=== PATIENT | male | born 1990 | race African-American/Black ===

== ENCOUNTER 2020-09-27 20:40 | Emergency (ER) | payer SELFPAY ==
[2020-09-27] MEDS ORDERED: ACETAMINOPHEN 500 MG TAB ONE (22:03)
[2020-09-28 00:01] LABS: Hematocrit 38.8 % (39.6-49.0); RBC Red Blood Cell Count 4.48 M/uL (4.33-5.43)
[2020-09-28 00:02] LABS: Absolute Lymphocytes (CBC) 3.7 K/uL (0.7-4.9); Basophils % 0.7 % (0-1.3); Lymphocytes % 69.7 % (15.3-44.8); MPV 8.3 fL (7.6-11.3)
[2020-09-28] MEDS ORDERED: ONDANSETRON 4 MG/2 ML VIAL ONE (00:21)
[2020-09-28 00:41] LABS: Protime INR 1.09
[2020-09-28 00:49] LABS: Urine Blood Negative (Negative); Urine Glucose Negative (Negative); Urine Protein Trace (Negative); Urine Specific Gravity 1.025 (1.005-1.030)
[2020-09-28 01:11] LABS: Barbiturates NEGATIVE (NEGATIVE); Benzodiazepines NEGATIVE (NEGATIVE); Cocaine NEGATIVE (NEGATIVE); METHAMPHETAM NEGATIVE (NEGATIVE); Methadone NEGATIVE (NEGATIVE); Opiates NEGATIVE (NEGATIVE); Phencyclidine NEGATIVE (NEGATIVE); THC Cannibis NEGATIVE (NEGATIVE)
[2020-09-28 01:37] LABS: ALT/SGPT 74 U/L (12-78); Albumin 3.9 g/dL (3.4-5.0); Alkaline Phosphatase 68 U/L (45-117); BUN Blood Urea Nitrogen 11 mg/dL (7-18); Bicarbonate 26 mmol/L (21-32); Bilirubin Total 0.9 mg/dL (0.2-1.0); Glucose Level 136 mg/dL (74-106); Lipase 243 U/L (73-393); Protein, Total 8.4 g/dL (6.4-8.2); Sodium Level 139 mmol/L (136-145)
[2020-09-28 01:43] LABS: AST/SGOT 50 U/L (15-37); Potassium 3.9 mmol/L (3.5-5.1)
--- NOTE | 2020-09-28 01:43 | ER ---
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 He called EMS reporting jb4 a headache with a nosebleed, became dizzy, and nauseous. His initial blood pressure was 150/100, it was 127/80 upon arrival to the ED. His temp was 98.3, and his bgl was 125. He also reported blurry vision. Coronavirus screen: Client denies travel out of the [place] in the last 14 days. At this time, the client does not indicate any symptoms associated with coronavirus-19. Ebola Screen: No symptoms or risks identified at this time. Initial Sepsis Screen: Does the patient meet any 2 criteria? No. Patient's initial sepsis screen is negative. Does the patient have a suspected source of infection? No. Patient's initial sepsis screen is negative. Risk Assessment: Do you want to hurt yourself or someone else? Patient reports no desire to harm self or others. Onset of symptoms was September 27, 2020. Transition of care: patient was not received from another setting of care. 21:03 Method Of Arrival: EMS: [facility] jb4 21:03 Acuity: YEE 3 jb4 Triage Assessment: 09/28 02:13 Pain: Also complains of. jb4 Historical: - Allergies: 09/27 21:09 No Known Allergies; jb4 - Home Meds: 21:09 Genvoya oral oral [Active]; jb4 - PMHx: 21:09 low Vit. D; HIV; jb4 - PSHx: 21:09 None; jb4 - Immunization history:: Adult Immunizations up to date, Flu vaccine is up to date. - Social history:: Smoking status: Patient denies any tobacco usage or history of. Patient/guardian denies using alcohol, street drugs. - Family history:: not pertinent. Screenin:50 Abuse screen: Denies threats or abuse. Nutritional screening: No deficits noted. jb4 Tuberculosis screening: No symptoms or risk factors identified. 23:50 Fall Risk None identified. jb4 Assessment: 23:00 General: Appears in no apparent distress. comfortable, Behavior is calm, cooperative, jb4 appropriate for age. Pain: Complains of pain in headache Pain does not radiate. Pain currently is 0 out of 10 on a pain scale. Neuro: Level of Consciousness is awake, alert, obeys commands, Oriented to person, place, time, situation. Cardiovascular: Patient's skin is warm and dry. Respiratory: Airway is patent Respiratory effort is even, unlabored, Respiratory pattern is regular, symmetrical. GI: No signs and/or symptoms were reported involving the gastrointestinal system. : No signs and/or symptoms were reported regarding the genitourinary system. EENT: No signs and/or symptoms were reported regarding the EENT system. Derm: Skin is intact, Skin is pink, warm \T\ dry. Musculoskeletal: Circulation, motion, and sensation intact. Range of motion: intact in all extremities. 09/28 00:00 Reassessment: Patient appears in no apparent distress at this time. Patient and/or jb4 family updated on plan of care and expected duration. Pain level reassessed. Patient is alert, oriented x 3, equal unlabored respirations, skin warm/dry/pink. 01:00 Reassessment: Patient appears in no apparent distress at this time. Patient and/or jb4 family updated on plan of care and expected duration. Pain level reassessed. Patient is alert, oriented x 3, equal unlabored respirations, skin warm/dry/pink. Vital Signs: 09/27 21:03 BP 130 / 84; Pulse 76; Resp 16; Temp 98.8; Pulse Ox 94% ; Weight 107.05 kg (R); Height jb4 6 ft. 3 in. (190.50 cm) (R); Pain 9/10; 09/28 00:00 BP 119 / 72; Pulse 67; Resp 16; Pulse Ox 98% on R/A; jb4 01:15 BP 107 / 65; Pulse 73; Resp 18; Pulse Ox 96% on R/A; jb4 01:45 BP 108 / 64; Pulse 72; Resp 16; Pulse Ox 94% on R/A; jb4 09/27 21:03 Body Mass Index 29.50 (107.05 kg, 190.50 cm) jb4 Darwin Coma Score: 09/27 23:44 Eye Response: spontaneous(4). Verbal Response: oriented(5). Motor Response: obeys [facility] commands(6). Total: 15. ED Course: 20:47 Patient arrived in ED. cf2 21:08 Triage completed. jb4 21:09 Arm band placed on right wrist. jb4 23:20 Danny Duque MD is Attending Physician. [facility] 23:48 Initial lab(s) drawn, by ky, sent to lab. Inserted saline lock: 20 gauge in right jp3 antecubital area, using aseptic technique. Blood collected. Patient maintains SpO2 saturation greater than 95% on room air. 23:49 Bed in low position. Call light in reach. Side rails up X 1. Warm blanket given. Verbal jp3 reassurance given. Pulse ox on. NIBP on. 23:50 No provider procedures requiring assistance completed. IV discontinued, intact, jb4 bleeding controlled, No redness/swelling at site. Pressure dressing applied. 23:58 Kike Whittaker, RN is Primary Nurse. jb4 09/28 00:06 Chest Single View XRAY In Process Unspecified. EDMS 00:59 CT Head Brain wo Cont In Process Unspecified. EDMS 01:43 Chad Diaz MD is Referral Physician. [facility] Administered Medications: 09/27 21:50 Drug: Tylenol 1000 mg Route: PO; jb4 23:00 Follow up: Response: No adverse reaction; Marked relief of symptoms; Pain is decreased jb4 09/28 00:14 Not Given (Patient Refused): Zofran (Ondansetron) 4 mg IVP once; over 2 minutes jb Outcome: 01:43 Discharge ordered by . [facility] 02:13 Discharged to home ambulatory. jb4 02:13 Condition: stable 02:13 Discharge instructions given to patient, Instructed on discharge instructions, follow up and referral plans. medication usage, Demonstrated understanding of instructions, follow-up care, medications, Prescriptions given X 2. 02:14 Patient left the ED. jb4 Signatures: Dispatcher [employer] EDDanny Pulliam MD MD cha Bryson, James, RN RN jb4 Ryan Morris jp3 Tiffanie Martínez cf2
--- NOTE | 2020-09-28 01:44 | EDPHYS ---
Physician Documentation [facility] Name: Abdulaziz Stokes Age: 30 yrs Sex: Male : 1990 Arrival Date: 09/27/2020 Time: 20:47 Bed 13 Private MD: ED Physician Danny Duque HPI: 09/27 23:39 This 30 yrs old Black Male presents to ER via EMS with complaints of Headache, Nausea, erlinda Dizziness. 23:39 The patient complains of pain to the top of head, forehead, left frontal area, left erlinda side of the back of head, left occipital area, left base of the skull, right frontal area, right side of the back of head, right occipital area and right base of the skull. The patient describes the headache as aching, constant. Onset: The symptoms/episode began/occurred 2 day(s) ago. Associated signs and symptoms: The patient has no apparent associated signs or symptoms. Severity of symptoms: At its worst the pain was mild, in the emergency department the pain is unchanged. Headache History: Denies prior headaches. The symptoms are alleviated by nothing. the symptoms are aggravated by nothing. The patient has experienced similar episodes in the past, a few times. Historical: - Allergies: 21:09 No Known Allergies; jb4 - Home Meds: 21:09 Genvoya oral oral [Active]; jb4 - PMHx: 21:09 low Vit. D; HIV; jb4 - PSHx: 21:09 None; jb4 - Immunization history:: Adult Immunizations up to date, Flu vaccine is up to date. - Social history:: Smoking status: Patient denies any tobacco usage or history of. Patient/guardian denies using alcohol, street drugs. - Family history:: not pertinent. ROS: 23:39 Constitutional: Negative for fever, chills, and weight loss, Eyes: Negative for injury, erlinda pain, redness, and discharge, ENT: Negative for injury, pain, and discharge, Neck: Negative for injury, pain, and swelling, Cardiovascular: Negative for chest pain, palpitations, and edema, Respiratory: Negative for shortness of breath, cough, wheezing, and pleuritic chest pain, Abdomen/GI: Negative for abdominal pain, nausea, vomiting, diarrhea, and constipation, Back: Negative for injury and pain, : Negative for injury, bleeding, discharge, and swelling, MS/Extremity: Negative for injury and deformity, Skin: Negative for injury, rash, and discoloration, Psych: Negative for depression, anxiety, suicide ideation, homicidal ideation, and hallucinations, Allergy/Immunology: Negative for hives, rash, and allergies, Endocrine: Negative for neck swelling, polydipsia, polyuria, polyphagia, and marked weight changes, Hematologic/Lymphatic: Negative for swollen nodes, abnormal bleeding, and unusual bruising. 23:39 Neuro: Positive for headache. Exam: 23:39 Constitutional: This is a well developed, well nourished patient who is awake, alert, erlinda and in no acute distress. Head/Face: Normocephalic, atraumatic. Eyes: Pupils equal round and reactive to light, extra-ocular motions intact. Lids and lashes normal. Conjunctiva and sclera are non-icteric and not injected. Cornea within normal limits. Periorbital areas with no swelling, redness, or edema. ENT: Nares patent. No nasal discharge, no septal abnormalities noted. Tympanic membranes are normal and external auditory canals are clear. Oropharynx with no redness, swelling, or masses, exudates, or evidence of obstruction, uvula midline. Mucous membranes moist. Neck: Trachea midline, no thyromegaly or masses palpated, and no cervical lymphadenopathy. Supple, full range of motion without nuchal rigidity, or vertebral point tenderness. No Meningismus. Chest/axilla: Normal chest wall appearance and motion. Nontender with no deformity. No lesions are appreciated. Cardiovascular: Regular rate and rhythm with a normal S1 and S2. No gallops, murmurs, or rubs. Normal PMI, no JVD. No pulse deficits. Respiratory: Lungs have equal breath sounds bilaterally, clear to auscultation and percussion. No rales, rhonchi or wheezes noted. No increased work of breathing, no retractions or nasal flaring. Abdomen/GI: Soft, non-tender, with normal bowel sounds. No distension or tympany. No guarding or rebound. No evidence of tenderness throughout. Back: No spinal tenderness. No costovertebral tenderness. Full range of motion. Male : Normal genitalia with no discharge or lesions. Skin: Warm, dry with normal turgor. Normal color with no rashes, no lesions, and no evidence of cellulitis. MS/ Extremity: Pulses equal, no cyanosis. Neurovascular intact. Full, normal range of motion. Neuro: Awake and alert, GCS 15, oriented to person, place, time, and situation. Cranial nerves II-XII grossly intact. Motor strength 5/5 in all extremities. Sensory grossly intact. Cerebellar exam normal. Normal gait. Psych: Awake, alert, with orientation to person, place and time. Behavior, mood, and affect are within normal limits. 23:39 Neck: ROM/movement: is normal, no acute changes, Meningeal signs: are not present, Kernig's sign is negative, Brudzinski's sign is negative. 09/28 00:05 ECG was reviewed by the Attending Physician. [facility] Vital Signs: 09/27 21:03 BP 130 / 84; Pulse 76; Resp 16; Temp 98.8; Pulse Ox 94% ; Weight 107.05 kg (R); Height jb4 6 ft. 3 in. (190.50 cm) (R); Pain 9/10; 09/28 00:00 BP 119 / 72; Pulse 67; Resp 16; Pulse Ox 98% on R/A; jb4 01:15 BP 107 / 65; Pulse 73; Resp 18; Pulse Ox 96% on R/A; jb4 01:45 BP 108 / 64; Pulse 72; Resp 16; Pulse Ox 94% on R/A; jb4 09/27 21:03 Body Mass Index 29.50 (107.05 kg, 190.50 cm) jb4 Darwin Coma Score: 09/27 23:44 Eye Response: spontaneous(4). Verbal Response: oriented(5). Motor Response: obeys [facility] commands(6). Total: 15. MDM: 23:20 Patient medically screened. erlinda 23:44 Differential diagnosis: hyponatremia, migraine, neoplasm, tension headache, vasomotor erlinda headache. Data reviewed: vital signs, nurses notes, lab test result(s), EKG, radiologic studies, CT scan. Data interpreted: monitor worker: rate is 76 beats/min, rhythm is regular, Pulse oximetry: on room air is 94 %. Test interpretation: by ED physician or midlevel provider: ECG, plain radiologic studies. Counseling: I had a detailed discussion with the patient and/or guardian regarding: the historical points, exam findings, and any diagnostic results supporting the discharge/admit diagnosis, lab results, radiology results, the need for outpatient follow up. 09/27 23:38 Order name: CBC with Diff [facility] 09/27 23:38 Order name: Comprehensive Metabolic Panel; Complete Time: 01:44 [facility] 09/27 23:38 Order name: UDS; Complete Time: 01:28 [facility] 09/27 23:38 Order name: Lipase; Complete Time: 01:44 [facility] 09/27 23:39 Order name: PT-INR; Complete Time: 00:59 [facility] 09/28 00:15 Order name: Manual Differential [facility] 09/27 23:38 Order name: Urine Dipstick-Ancillary (obtain specimen); Complete Time: 00:51 [facility] 09/27 23:38 Order name: EKG; Complete Time: 23:39 [facility] 09/27 23:38 Order name: CT Head Brain wo Cont [facility] 09/27 23:46 Order name: Chest Single View XRAY [facility] 09/28 00:49 Order name: Urine Dipstick-Ancillary; Complete Time: 00:59 [facility] 09/28 02:02 Order name: Slides for Pathologist Review [facility] 09/27 23:38 Order name: EKG - Nurse/Tech; Complete Time: 00:08 [facility] EC/20 00:05 Rate is 69 beats/min. Rhythm is regular. QRS [place] is Normal. DE interval is normal. QRS erlinda interval is normal. QT interval is normal. No Q waves. T waves are Normal. No ST changes noted. Clinical impression: Normal ECG and No evidence of ischemia. Interpreted by me. Reviewed by me. Administered Medications: 09/27 21:50 Drug: Tylenol 1000 mg Route: PO; [facility] 23:00 Follow up: Response: No adverse reaction; Marked relief of symptoms; Pain is decreased [facility] 09/28 00:14 Not Given (Patient Refused): Zofran (Ondansetron) 4 mg IVP once; over 2 minutes jb4 Disposition: 09/28/20 01:43 Discharged to Home. Impression: Epistaxis, Essential (primary) hypertension, Nausea. - Condition is Stable. - Discharge Instructions: Nosebleed, Adult, Hypertension, Nausea, Adult, Hypertension, [id number], How to Take Your Blood Pressure, [id number], Nosebleed, Xhur-vv-Ornj, Nausea, Adult, Tcfk-[id number]-Fzkz, Managing Your Hypertension. - Prescriptions for Norvasc 5 mg Oral Tablet - take 1 tablet by ORAL route once daily; 20 tablet. Zofran 4 mg Oral Tablet - take 1 tablet by ORAL route every 12 hours As needed; 20 tablet. - Medication Reconciliation Form, Thank You Letter, Antibiotic Education, Prescription Opioid Use, Work release form form. - Follow up: Private Physician; When: 2 - 3 days; Reason: Recheck today's complaints, Continuance of care, Re-evaluation by your physician. Follow up: Chad Diaz; When: 2 - 3 days; Reason: Recheck today's complaints, Re-evaluation by your physician. - Problem is new. - Symptoms have improved. Signatures: Dispatcher [employer] EDMS Danny Duque MD MD cha Bryson, James, RN RN jb4 Corrections: (The following items were deleted from the chart) 02:14 01:43 09/28/2020 01:43 Discharged to Home. Impression: Epistaxis; Essential (primary) jb4 hypertension; Nausea. Condition is Stable. Discharge Instructions: Nosebleed, Adult, Hypertension, Nausea, Adult, Hypertension, Engd-yo-Eyuz, How to Take Your Blood Pressure, Hely-lv-Vidt, Nosebleed, Jksx-mn-Xaox, Nausea, Adult, Fbet-[id number], Managing Your Hypertension. Prescriptions for Norvasc 5 mg Oral Tablet - take 1 tablet by ORAL route once daily; 20 tablet, Zofran 4 mg Oral Tablet - take 1 tablet by ORAL route every 12 hours As needed; 20 tablet. and Forms are Medication Reconciliation Form, Thank You Letter, Antibiotic Education, Prescription Opioid Use. Follow up: Private Physician; When: 2 - 3 days; Reason: Recheck today's complaints, Continuance of care, Re-evaluation by your physician. Follow up: Chad Diaz; When: 2 - 3 days; Reason: Recheck today's complaints, Re-evaluation by your physician. Problem is new. Symptoms have improved. erlinda
[2020-09-28 02:01] LABS: Blood Morphology Comment NOT SEEN (NOT SEEN); Platelet Estimate ADEQ
[2020-09-28 03:53] VITALS: TEMP 98.8
[2020-09-28 03:57] VITALS: BP 108/64; O2SAT 94
--- NOTE | 2020-09-28 08:15 | RAD REPORT ---
EXAM DESCRIPTION: RAD - Chest Single View - 09/28/2020 12:03 am CLINICAL HISTORY: COUGH COMPARISON: None TECHNIQUE: AP portable chest image was obtained 09/28/2020 12:03 am . FINDINGS: Low lung volumes accentuate interstitial pattern. No failure, infiltrate or mass identifie d. Heart and vasculature are normal. No measurable pleural effusion and no pneumothorax. No acute bon y abnormality seen. No acute aortic findings suspected. IMPRESSION: No acute cardiopulmonary process.
--- NOTE | 2020-09-28 11:59 | RAD REPORT ---
EXAM DESCRIPTION: CT - Head Brain Wo Cont - 09/28/2020 7:05 am CLINICAL HISTORY: Dizziness; Headache TECHNIQUE: Contiguous axial CT images obtained through the brain without IV contrast. Coronal and sa gittal reformatted images were provided. This exam was performed according to our departmental dose-optimization program, which includes autom ated exposure control, adjustment of the mA and/or kV according to patient size and/or use of iterati ve reconstruction technique. COMPARISON: None available for comparison FINDINGS: Brain: No significant white matter changes. No focal mass effect. Landis-white matter differ entiation is within normal limits. No hemorrhage. Ventricles: No ventriculomegaly or midline shift. Extra-axial spaces: No extra-axial collection or hemorrhage. Paranasal sinuses and mastoid air cells: Well-aerated Vessels: Unremarkable Bones: Unremarkable Soft tissues: Unremarkable IMPRESSION: No acute intracranial or extra-axial abnormality. Electronically signed by: Mena Diez MD 09/28/2020 1:28 AM CDT Due to temporary technical issues with the PACS/Fluency reporting system, reports are being signed by the in house radiologists without review as a courtesy to insure prompt reporting. The interpreting radiologist is fully responsible for the content of the report.
--- NOTE | 2020-09-28 12:14 | EKG ---
Test Date: 2020-09-27 Test Time: 23:49:51 Claims Adjuster: YISEL MEASUREMENT RESULTS: Intervals: Rate: 69 HI: 172 QRSD: 104 QT: 376 QTc: 402 [place]: P: 26 HI: 172 QRS: 43 T: 17 INTERPRETIVE STATEMENTS: Normal sinus rhythm with sinus arrhythmia Normal ECG No previous ECG available for comparison Electronically Signed On 09-28-20 12:13:18 CDT by Chad Diaz
== END 2020-09-28 02:14 | disposition home or self-care (01) ==
LOC: ER 20:40
DX: I10 Essential (primary) hypertension (principal); R11.0 Nausea; Z21 Asymptomatic human immunodeficiency virus [HIV] infection status
CPT/HCPCS: 36415; 70450; 71045; 80053; 80307; 81003; 83690; 85025; 85610; 93005; 99285; J2405